=== PATIENT | female | born 1975 | race Caucasian/White ===

== ENCOUNTER 2020-04-22 10:21 | Emergency (ER) | payer BC ==
[2020-04-22 10:32] VITALS: BMI 35.4
[2020-04-22] MEDS ORDERED: CASIRIVIMAB (REGN10933) 1,200 MG, IMDEVIMAB (REGN10987) 1,200 MG in SODIUM CHLORIDE 230 ML IVPB ONE (10:54)
[2020-04-22 12:12] LABS: HEMATOCRIT 37.9 % (32.4-45.2); HEMOGLOBIN 12.6 GM/dL (10.7-15.3); MCH 28.4 pg (25.7-33.7); MCHC 33.3 g/dl (32.0-36.0); MEAN CELL VOLUME 85.2 fl (80-96); MEAN PLT VOLUME 10.3 fl (7.5-11.1); PLATELET COUNT 105 K/MM3 (134-434); RBC 4.45 M/mm3 (3.60-5.2); RDW 13.2 % (11.6-15.6); WHITE BLOOD COUNT 3.4 K/mm3 (4.0-10.0)
[2020-04-22 12:40] LABS: POTASSIUM 3.9 mmol/L (3.5-5.1)
[2020-04-22 12:42] LABS: CALCIUM 8.4 mg/dL (8.5-10.1)
[2020-04-22 12:43] LABS: BLOOD UREA NITROGEN 7.6 mg/dL (7-18)
[2020-04-22 12:46] LABS: CREATININE 0.7 mg/dL (0.55-1.3)
[2020-04-22 16:11] VITALS: BP 109/83; PULSE 83; TEMP 97.7
== END 2020-04-22 16:24 | disposition home or self-care (01) ==
LOC: JER 10:21
PROC: 3E033NZ Introduction of Analgesics, Hypnotics, Sedatives into Peripheral Vein, Percutaneous Approach (ICD-10-PCS; principal; 2020-04-22)
PROC: 3E033GC Introduction of Other Therapeutic Substance into Peripheral Vein, Percutaneous Approach (ICD-10-PCS; 2020-04-22)
DX: Z11.52 Encounter for screening for COVID-19 (principal)
CPT/HCPCS: 36415; 71046-TC-FY; 80048; 84703; 85027; 99285-25; M0243; Q0243

== ENCOUNTER 2020-12-31 19:49 | Emergency (ER) | payer BC ==
[2020-12-31] MEDS ORDERED: CEPHALEXIN MONOHYDRATE 500 MG CAPSULE (UD) PO ONE (20:02)
[2020-12-31 20:03] VITALS: BP 123/70; PULSE 90; TEMP 98; BMI 36.1
[2020-12-31] MEDS ORDERED: CEPHALEXIN MONOHYDRATE 500 MG CAPSULE (UD) ONE (20:05)
== END 2020-12-31 20:15 | disposition home or self-care (01) ==
LOC: FER 19:49
DX: T63.441A Toxic effect of venom of bees, accidental (unintentional), initial encounter (principal); L03.114 Cellulitis of left upper limb
CPT/HCPCS: 99283-25